=== PATIENT | male | born 1975 | race African-American/Black ===

== ENCOUNTER 2021-03-15 16:09 | Emergency (ER) | payer OTHER ==
[2021-03-15 16:23] VITALS: BP 155/80; PULSE 104; TEMP 98; BMI 41.3
== END 2021-03-15 17:55 | disposition home or self-care (01) ==
LOC: JER 16:09
DX: U07.1 COVID-19 (principal); R05.1 Acute cough; R09.81 Nasal congestion
CPT/HCPCS: 71046-TC-FY; 93005; 93010; 99284-25

== ENCOUNTER 2022-02-07 04:53 | Emergency (ER) | payer OTHER ==
[2022-02-07 05:11] VITALS: BP 116/74; PULSE 91; RESP 18; TEMP 99.8; BMI 41.9
[2022-02-07] MEDS ORDERED: ACETAMINOPHEN 500 MG TABLET (FP) PO ONE (06:07)
== END 2022-02-07 09:10 | disposition home or self-care (01) ==
LOC: JER 04:53
DX: J09.X2 Influenza due to identified novel influenza A virus with other respiratory manifestations (principal); R05.1 Acute cough; J02.9 Acute pharyngitis, unspecified
CPT/HCPCS: 0241U-QW; 71045-TC-FY; 82962; 93005; 93010; 99285-25